=== PATIENT | female | born 1980 | race Caucasian/White ===

== ENCOUNTER 2016-10-28 14:57 | Emergency (ER) | payer OTHER ==
[~2016-10-28] VITALS: Ht 162.6 cm; Wt 89.0 kg
[~2016-10-28 14:57] MED LIST: IBUP-1542 PO
[2016-10-28 15:04] VITALS: Ht 162.6 cm; Wt 89.0 kg
[2016-10-28] MEDS ORDERED: NAPR-260 PO (15:14)
[2016-10-28] MEDS ORDERED: DOXY100T20 PO (15:14)
--- NOTE | 2016-10-28 15:43 | ERD ---
ER Documentation Chief Complaint Date/Time DATE: 10/28/16 TIME: 15:40 Chief Complaint Complains of infected insect bites on ankle HPI This patient is a 35-year-old female presenting to the emergency department with complaints of 3 bug bites which are "infected" to the left lower extremity. Symptoms have been worsening over 3 days. Associated symptoms include pain, pus, and redness. The patient denies fevers, chills, nausea, vomiting, diarrhea, and other symptoms. ROS All systems reviewed and are negative except as per history of present illness. Medications Home Meds Active Scripts Naproxen* (Naprosyn*) 500 Mg Tablet, 500 MG PO BID Y for PAIN AND/OR INFLAMMATION, #30 TAB Prov:DIETER AGUSTIN PA-C 10/28/16 Doxycycline Hyclate* (Doxycycline Hyclate*) 100 Mg Tablet.dr, 100 MG PO BID for 10 Days, #20 TAB Prov:DIETER AGUSTIN PA-C 10/28/16 Ibuprofen* (Motrin*) 600 Mg Tab, 600 MG PO Q8 for 10 Days, #30 TAB 0 Refills Prov:BENNY RICE PA-C 11/03/15 Allergies Allergies: Coded Allergies: Sulfa (Sulfonamide Antibiotics) (Verified Allergy, Intermediate, RASH, sob , 01/25/14) PMhx/Soc History of Surgery: No Anesthesia Reaction: No Hx Neurological Disorder: No Hx Respiratory Disorders: No Hx Cardiac Disorders: No Hx Psychiatric Problems: No Hx Miscellaneous Medical Probl: No Hx Alcohol Use: No Hx Substance Use: No Hx Tobacco Use: No Physical Exam Vitals Vital Signs Date Time Temp Pulse Resp B/P Pulse Ox O2 Delivery O2 Flow Rate FiO2 10/28/16 15:04 98.1 95 20 115/68 98 Physical Exam Const: Nontoxic, well-appearing female in no acute distress. Head: Atraumatic Eyes: Normal Conjunctiva ENT: Normal External Ears, Nose and Mouth. Neck: Full range of motion..~ No meningismus. Skin: There are 3 shallow lesions draining material to the left lower extremity. There is associated surrounding erythema. There is no lymphatic streaking up the leg. There are no other signs of severe or disseminated cellulitis. Back: No gross deformity, full range of motion. Ext: There are 3 shallow lesions draining material to the left lower extremity. There is associated surrounding erythema. There is no lymphatic streaking up the leg. There are no other signs of severe or disseminated cellulitis. Neur: Awake and alert Psych: Normal Mood and Affect Procedures/MDM 35-year-old female presents to the emergency department with complaints of left lower extremity but bites with redness, swelling, and discharge. The history and clinical examination is consistent with bug bites of the left lower extremity with associated cellulitis. Patient is stable for outpatient management with a prescription for doxycycline and naproxen. Her questions and concerns were addressed and she agreed with the discharge plan and diagnosis. Strict ER return precautions were discussed. The patient is to have close follow-up with her primary care physician. Departure Diagnosis: Primary Impression: Cellulitis Site of cellulitis: extremity Site of cellulitis of extremity: lower extremity Laterality: left Qualified Code: L03.116 - Cellulitis of left lower extremity Additional Impression: Insect bites Encounter type: initial encounter Qualified Code: W57.XXXA - Insect bites, initial encounter Condition: Fair Patient Instructions: Cellulitis Referrals: [facility] YOU HAVE RECEIVED A MEDICAL SCREENING EXAM AND THE RESULTS INDICATE THAT YOU DO NOT HAVE A CONDITION THAT REQUIRES URGENT TREATMENT IN THE EMERGENCY DEPARTMENT. FURTHER EVALUATION AND TREATMENT OF YOUR CONDITION CAN WAIT UNTIL YOU ARE SEEN IN YOUR DOCTORS OFFICE WITHIN THE NEXT 1-2 DAYS. IT IS YOUR RESPONSIBILITY TO MAKE AN APPOINTMENT FOR FOLOW-UP CARE. IF YOU HAVE A PRIMARY DOCTOR --you should call your primary doctor and schedule an appointment IF YOU DO NOT HAVE A PRIMARY DOCTOR YOU CAN CALL OUR PHYSICIAN REFERRAL HOTLINE AT IF YOU CAN NOT AFFORD TO SEE A PHYSICIAN YOU CAN CHOSE FROM THE FOLLOWING [facility] [address] [facility] [address] [facility] [address] [facility] [address] [facility] [address] [facility]. [facility]. [address] Additional Instructions: Follow up with your PCP within the next 1-3 days for a repeat evaluation and a possible referral to a specialist, if required. Return the the emergency department immediately if symptoms worsen or change. If you have any questions regarding medications, ask your pharmacist or us before you leave. If any adverse reactions, occur while taking your medications, discontinue the treatment and return to the emergency department immediately. If any new or worsening symptoms, uncontrolled fevers, or other unexplained symptoms occur, return to the emergency department immediately. Take your medications as directed, and complete the entire course of treatment. DIETER AGUSTIN PA-C Oct 28, 2016 15:43
== END 2016-10-28 15:16 | disposition home or self-care (01) ==
LOC: E/R 14:57
DX: L03.116 Cellulitis of left lower limb (principal); W57.XXXA Bitten or stung by nonvenomous insect and other nonvenomous arthropods, initial encounter; Y92.9 Unspecified place or not applicable
CPT/HCPCS: 99283

== ENCOUNTER 2017-11-21 08:45 | Emergency (ER) | END 2017-11-21 11:31 | disposition home or self-care (01) ==

== ENCOUNTER 2018-11-15 05:23 | Emergency (ER) | payer OTHER ==
[~2018-11-15] VITALS: Ht 157.5 cm; Wt 87.1 kg
[~2018-11-15 05:23] MED LIST changes: +CEPH-443 PO; +DOXY100T20 PO; +NAPR-985 PO
[2018-11-15 05:28] VITALS: BP 138/85; PULSE 88; RESP 20; Ht 157.5 cm; Wt 87.1 kg
[2018-11-15] MEDS ORDERED: DEXAMETHASONE 10 MG/ML 1 ML INJ IM ONE (06:00)
[2018-11-15] MEDS ORDERED: DIPHENHYDRAMINE 50 MG INJ IM ONE (06:00)
[2018-11-15] MEDS ORDERED: BEN50 PO (06:22)
[2018-11-15] MEDS ORDERED: HC30CR25 TOP (06:22)
--- NOTE | 2018-11-15 07:07 | ERD ---
ER Documentation Chief Complaint Chief Complaint BOTTOM LIP SWOLLEN SINCE 0200; UNK TRIGGER; NO RESP DISTRESS HPI Patient is 38-year-old female presented to ED for swollen lip and skin lesions. Upon entering the room the patient was very agitated and verbally abusive to me. The patient appears to be a poor historian and speaking with pressured speech. The patient denies any suicidal homicidal ideation. Patient denies any IV drug use. The patient denies any past medical history. The patient states this is never happened to her before. Upon looking at the patient's chart she has been seen here for this symptoms several times in the past year. Patient denies any chance of being . Patient denies psych history patient's vitals are stable patient can speak in full sentences without shortness of breath ROS All systems reviewed and are negative except as per history of present illness. Medications Home Meds Active Scripts Hydrocortisone* Topical (Hydrocortisone* Topical) 2.5%-28.3 Gm Cream..g., 1 APPLIC TOP BID, #1 TUB Prov:MOSHE PIMENTEL PA-C 11/15/18 Diphenhydramine Hcl* (Benadryl*) 50 Mg Cap, 50 MG PO Q6 PRN for AGITATION/ANXIETY, #10 CAP Prov:MOSHE PIMENTEL PA-C 11/15/18 Cephalexin* (Keflex*) 500 Mg Capsule, 500 MG PO QID for 7 Days, CAP Prov:CRICKET MCCORMICK PA-C 11/21/17 Ibuprofen* (Motrin*) 600 Mg Tab, 600 MG PO Q6, #30 TAB Prov:CRICKET MCCORMICK PA-C 11/21/17 Naproxen* (Naprosyn*) 500 Mg Tablet, 500 MG PO BID PRN for PAIN AND/OR INFLAMMATION, #30 TAB Prov:DIETER AGUSTIN PA-C 10/28/16 Doxycycline Hyclate* (Doxycycline Hyclate*) 100 Mg Tablet.dr, 100 MG PO BID for 10 Days, #20 TAB Prov:DIETER AGUSTIN PA-C 10/28/16 Ibuprofen* (Motrin*) 600 Mg Tab, 600 MG PO Q8 for 10 Days, #30 TAB 0 Refills Prov:BENNY RICE PA-C 11/03/15 Allergies Allergies: Coded Allergies: Sulfa (Sulfonamide Antibiotics) (Verified Allergy, Intermediate, RASH, sob , 01/25/14) PMhx/Soc Medical and Surgical Hx: pt denies Medical Hx, pt denies Surgical Hx History of Surgery: No Anesthesia Reaction: No Hx Neurological Disorder: No Hx Respiratory Disorders: No Hx Cardiac Disorders: No Hx Psychiatric Problems: No Hx Miscellaneous Medical Probl: No Hx Alcohol Use: No Hx Substance Use: No Hx Tobacco Use: No FmHx Family History: No diabetes, No coronary disease, No other Physical Exam Vitals Vital Signs Date Temp Pulse Resp B/P (MAP) Pulse Ox O2 O2 Flow FiO2 Time Delivery Rate 11/15/18 98.7 88 20 138/85 100 05:28 (102) Physical Exam Const: Agitated verbally abusive Head: Atraumatic Eyes: Normal Conjunctiva ENT: Normal External Ears, Nose and mild swelling to bottom lip no tongue edema Neck: Full range of motion. No meningismus. Resp: Clear to auscultation bilaterally Cardio: Regular rate and rhythm, no murmurs Abd: Soft, non tender, non distended. Normal bowel sounds Skin: Small skin lesions most consistent with bedbug bites Neur: Awake and alert Psych: Anxious pressured speech Results 24 hrs Current Medications Medications Dose Sig/Gracie Start Time Status Last (Trade) Ordered Route PRN Stop Time Admin Dose Reason Admin 50 mg ONCE ONCE 11/15/18 DC 11/15/18 Diphenhydrami IM 06:00 06:05 ne HCl 11/15/18 06:01 (Benadryl) 10 mg ONCE ONCE 11/15/18 DC 11/15/18 Dexamethasone IM 06:00 06:05 (Decadron) 11/15/18 06:01 Procedures/MDM Medications given in ER: Benadryl Patient tolerated medication well with no adverse reactions. Patient reported improvement in pain. Medical decision makin-year-old female presenting to the ED for swollen bottom lip and multiple skin lesions most consistent with bedbug bites. The patient denies any IV drug use. The patient denies any allergies to medication. I suspect the patient has been using methamphetamines. She is speaking with pressured speech she is very agitated and verbally abusive to me. I gave the patient IM Benadryl and ordered a urine , dip, drug screen. The patient refused to give us urine. Patient was rude to nursing staff. The patient states this never happened to her before but upon reviewing the EMR the patient's been seen in the ED for this. They read the chart she has similar behavior to the other providers. Upon reevaluation the patient appears to have calm down with the Benadryl. The patient is frustrated that we cannot figure out what her bites are from. At this time the patient's O2 saturations is 100% and vitals are stable. I have low suspicion for anaphylactic reaction. The patient is not complaining of chest pain or shortness of breath. Lungs are clear bilateral heart sounds are good S1-S2 sounds at this time I have low suspicion for CT, myocarditis, cardiac tamponade. The patient is afebrile I have low suspicion for endocarditis. I advised the patient that if symptoms worsen she can return to ER immediately otherwise she is to follow-up with her primary care provider regarding this visit. Patient is agreement treatment plan had no further questions upon discharge Prescription for home: Hydrocortisone topical Benadryl I have discussed with the patient proper use and common side effects to expert with the medication . I advised the patient/family to speak with the pharmacist dispensing the medication to be advised of any potential drug interactions with other medication or supplements they may be taking. Discharge: At this time, patient is stable for discharge and outpatient management. I have instructed the patient to follow-up with his\her primary care physician in 1 to 2 days. I have discussed with the patient the possibility of needing to see a specialist for further work-up and imaging studies if symptoms persist. I have instructed the patient to promptly return to the ER for any new or worsening symptoms including increased pain, fever, nausea, vomiting, weakness or LOC. The patient and\or family expressed understanding of and agreement with this plan. All questions were answered. Home care instructions were provided. Disclaimer: Inadvertent spelling and grammatical errors are likely due to EHR\dictation software use and do not reflect on the overall quality of patient care. Also, please note that the electronic time recorded on the note does not necessarily reflect the actual time of the patient encounter. Departure Diagnosis: Primary Impression: Bug bites Encounter type: initial encounter Qualified Codes: W57.XXXA - Bitten or stung by nonvenomous insect and other nonvenomous arthropods, initial encounter Condition: Stable Patient Instructions: Bedbug Bites Referrals: [facility] YOU HAVE RECEIVED A MEDICAL SCREENING EXAM AND THE RESULTS INDICATE THAT YOU DO NOT HAVE A CONDITION THAT REQUIRES URGENT TREATMENT IN THE EMERGENCY DEPARTMENT. FURTHER EVALUATION AND TREATMENT OF YOUR CONDITION CAN WAIT UNTIL YOU ARE SEEN IN YOUR DOCTORS OFFICE WITHIN THE NEXT 1-2 DAYS. IT IS YOUR RESPONSIBILITY TO MAKE AN APPOINTMENT FOR FOLOW-UP CARE. IF YOU HAVE A PRIMARY DOCTOR --you should call your primary doctor and schedule an appointment IF YOU DO NOT HAVE A PRIMARY DOCTOR YOU CAN CALL OUR PHYSICIAN REFERRAL HOTLINE AT IF YOU CAN NOT AFFORD TO SEE A PHYSICIAN YOU CAN CHOSE FROM THE FOLLOWING [facility] [address] [facility] [facility] [address] [facility] [facility] [facility] [address] [facility] [facility] [address] [facility]. [facility] [address] [facility]. [facility] [address] [facility]. [facility] YOU HAVE RECEIVED A MEDICAL SCREENING EXAM AND THE RESULTS INDICATE THAT YOU DO NOT HAVE A CONDITION THAT REQUIRES URGENT TREATMENT IN THE EMERGENCY DEPARTMENT. FURTHER EVALUATION AND TREATMENT OF YOUR CONDITION CAN WAIT UNTIL YOU ARE SEEN IN YOUR DOCTORS OFFICE WITHIN THE NEXT 1-2 DAYS. IT IS YOUR RESPONSIBILITY TO MAKE AN APPOINTMENT FOR FOLOW-UP CARE. IF YOU HAVE A PRIMARY DOCTOR --you should call your primary doctor and schedule and appointment IF YOU DO NOT HAVE A PRIMARY DOCTOR YOU CAN CALL OUR PHYSICIAN REFERRAL HOTLINE AT . IF YOU CAN NOT AFFORD TO SEE A PHYSICIAN YOU CAN CHOSE FROM THE FOLLOWING [facility] INSTITUTIONS: [facility] [address] [place] [address] [facility] [address] [place] [address] [facility] + [facility] [address] [place] [address] Additional Instructions: Call your primary care doctor TOMORROW for an appointment during the next 1-2 days.See the doctor sooner or return here if your condition worsens before your appointment time. MOSHE PIMENTEL PA-C Nov 15, 2018 07:07
== END 2018-11-15 06:43 | disposition home or self-care (01) ==
LOC: FTE 05:23
DX: S00.561A Insect bite (nonvenomous) of lip, initial encounter (principal); F41.9 Anxiety disorder, unspecified; W57.XXXA Bitten or stung by nonvenomous insect and other nonvenomous arthropods, initial encounter; Y92.9 Unspecified place or not applicable
CPT/HCPCS: J1100; J1200; 96372